=== PATIENT | male | born 1975 | race Caucasian/White ===

== ENCOUNTER → 2017-01-29 | Outpatient (CLI) | payer MEDICARE, OTHER ==
[2017-01-29 13:13] LABS: BUN/CREATININE RATIO 28 (0-10)
== END ==
LOC: LAB 12:14
PROVIDERS: Nurse Practitioner Family
DX: G40.909 Epilepsy, unspecified, not intractable, without status epilepticus (principal)
CPT/HCPCS: 36415; 80048; 80299; 82140

== ENCOUNTER → 2020-10-27 | Outpatient (CLI) | payer MEDICARE, OTHER ==
[~2020-10-27] MED LIST: ASACOL HD800 MG PO; CLONIDINE HCL0.1 MG PO; COLACE 100MG C100 MG PO; COQ-10100 MG PO; DEPAKOTE 250 M250 MG PO; DEPAKOTE500 MG PO; MIRALAX17 GM PO; PRILOSEC OTC20 MG PO; TRAZODONE HCL100 MG PO; ZYPREXA10 MG PO
[2020-10-27 09:31] LABS: BUN/CREATININE RATIO 27 (0-10)
== END ==
LOC: LAB 08:50
PROVIDERS: Internal Medicine Gastroenterology
DX: K50.10 Crohn's disease of large intestine without complications (principal)
CPT/HCPCS: 36415; 80048

== ENCOUNTER → 2021-12-20 | Outpatient (CLI) | payer MEDICARE, OTHER ==
[2021-12-20 08:37] LABS: HEMOGLOBIN 15.9 gm/dl (14.0-17.5); RED BLOOD COUNT 5.02 M/UL (4.20-5.50); WHITE BLOOD COUNT 4.4 K/UL (4.5-11.0)
[2021-12-20 09:02] LABS: BUN/CREATININE RATIO 28 (0-10)
[2021-12-22 19:12] LABS: QUANTIFERON MITOGEN VALUE >10.00 IU/mL (.); QUANTIFERON NIL VALUE 0.04 IU/mL (.); QUANTIFERON TB1 AG VALUE 0.04 IU/mL (.); QUANTIFERON TB2 AG VALUE 0.06 IU/mL (.); QUANTIFERON-TB GOLD PLUS Negative (Negative)
== END ==
LOC: LAB 08:05
PROVIDERS: Nurse Practitioner Primary Care
DX: K50.90 Crohn's disease, unspecified, without complications (principal); G80.9 Cerebral palsy, unspecified; K21.9 Gastro-esophageal reflux disease without esophagitis; R56.9 Unspecified convulsions; K59.00 Constipation, unspecified
CPT/HCPCS: 36415; 80053; 82043; 82570; 84443; 85025